=== PATIENT | male | born 1950 | race Hispanic/Latino ===

== ENCOUNTER 2017-08-20 00:54 | Emergency (ER) | payer BC, MEDICARE ==
[~2017-08-20] VITALS: Ht 165.1 cm; Wt 75.7 kg
[2017-08-20] MEDS ORDERED: ONDANSETRON HCL INJ 2 MG/ML VIAL IV STA (01:57)
[2017-08-20] MEDS ORDERED: HYDROCODONE/APAP 7.5MG-325MG 1 EA TAB PO STA (01:57)
[2017-08-20] MEDS ORDERED: PANTOPRAZOLE 40 MG 10ML VIAL IV STA (01:57)
[2017-08-20] MEDS ORDERED: OXYBUTYNIN CHLORIDE 5 MG TAB PO ONE (02:00)
[2017-08-20] MEDS ORDERED: CLONIDINE HCL 0.1 MG TAB PO ONE (02:15)
[2017-08-20] MEDS ORDERED: SODIUM CHLORIDE 0.9% 500ML 500 ML IV ONE (02:15)
[2017-08-20 02:19] LABS: BASOPHILS # (AUTO) 0.1 (0.0-0.1); BASOPHILS % 0.7 % (0.0-1.0); EOSINOPHILS # (AUTO) 0.2 (0.0-0.4); EOSINOPHILS % 1.6 % (0.0-6.0); HEMATOCRIT 43.7 % (38.2-49.6); HEMOGLOBIN 15.3 g/dL (14.0-18.0); LYMPHOCYTES # (AUTO) 1.7 (1.0-3.2); LYMPHOCYTES % 13.7 % (18.0-39.1); MEAN CORPUSCULAR HEMOGLOBIN 29.7 pg (28-32); MEAN CORPUSCULAR VOLUME 84.9 fL (81-99); MONOCYTES # (AUTO) 0.9 (0.2-0.8); MONOCYTES % 7.8 % (4.4-11.3); NEUTROPHILS # (AUTO) 9.1 (2.1-6.9); NEUTROPHILS % 75.7 % (38.7-80.0); PLATELET COUNT 239 x10e3/uL (140-360); RED BLOOD COUNT 5.15 x10e6/uL (4.3-5.7); RED CELL DISTRIBUTION WIDTH 13.9 % (11.7-14.4)
[2017-08-20 02:40] LABS: ALANINE AMINOTRANSFERASE 26 IU/L (0-55); ALBUMIN 4.2 g/dL (3.5-5.0); ALBUMIN/GLOBULIN RATIO 1.4 (0.8-2.0); ALKALINE PHOSPHATASE 209 IU/L (40-150); ANION GAP 15.6 mmol/L (8-16); BLOOD UREA NITROGEN 9 mg/dL (7-26); BUN/CREATININE RATIO 13 (6-25); CALCIUM 9.9 mg/dL (8.4-10.2); CARBON DIOXIDE 23 mmol/L (22-29); CHLORIDE 99 mmol/L (98-107); CREATININE, SERUM 0.72 mg/dL (0.72-1.25); EST GLOMERULAR FILTRATION RATE > 60 ML/MIN (60-); GLUCOSE 368 mg/dL (74-118); MAGNESIUM 1.5 MG/DL (1.3-2.1); POTASSIUM 3.6 mmol/L (3.5-5.1); SODIUM 134 mmol/L (136-145)
--- NOTE | 2017-08-20 03:23 | Diagnostic Imaging Report ---
ADDENDUM #1 EXAM: CT Abdomen and Pelvis WITHOUT contrast INDICATION: Suprapubic pain for 4 days. COMPARISON: None. TECHNIQUE: Abdomen and pelvis were scanned utilizing a multidetector helical scanner from the lung base to the pubic symphysis without administration of IV contrast. Absence of intravenous contrast decreases sensitivity for detection of focal lesions and vascular pathology. Coronal and sagittal reformations were obtained. Stone protocol is performed. IV CONTRAST: None. ORAL CONTRAST: None RADIATION DOSE: Total DLP: 600.63 mGy*cm Estimated effective dose: (DLP x 0.015 x size factor) mSv COMPLICATIONS: None FINDINGS: LINES and TUBES: None. LOWER THORAX: Findings in the lung bases are compatible with early stages of fibrosis HEPATOBILIARY: No focal hepatic lesions. No biliary ductal dilation. GALLBLADDER: No radio-opaque stones or sludge. No wall thickening. SPLEEN: No splenomegaly. PANCREAS: No focal masses or ductal dilatation. ADRENALS: No adrenal nodules KIDNEYS/URETERS: No hydronephrosis. No cystic or solid mass lesions. 7.5 mm stone in the inferior renal collecting system of the left kidney. GI TRACT: No abnormal distention, wall thickening, or evidence of bowel obstruction. Appendix is normal. PELVIC ORGANS/BLADDER: Despite the presence of a Monahan catheter in the urinary bladder is severely distended suggestive of catheter obstruction LYMPH NODES: No lymphadenopathy. VESSELS: There is severe atherosclerotic disease in the aorta and major arterial branches. PERITONEUM / RETROPERITONEUM: No free air or fluid. BONES: There is extensive severe spinal and pelvic deformity related to levorotoscoliosis and loss of the usual lumbar lordosis. SOFT TISSUES: Unremarkable. IMPRESSION: 1. Urinary bladder ballooning despite the presence of a Monahan catheter. Correlate for catheter malfunction. Decompression of the bladder is recommended 2. Left-sided nephrolithiasis. 3. 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 Salvador Vasquez M.D. on 08/20/2017 3:44 AM ORIGINAL REPORT EXAM: CT Abdomen and Pelvis WITHOUT contrast INDICATION: Suprapubic pain for 4 days. COMPARISON: None. TECHNIQUE: Abdomen and pelvis were scanned utilizing a multidetector helical scanner from the lung base to the pubic symphysis without administration of IV contrast. Absence of intravenous contrast decreases sensitivity for detection of focal lesions and vascular pathology. Coronal and sagittal reformations were obtained. Stone protocol is performed. IV CONTRAST: None. ORAL CONTRAST: None RADIATION DOSE: Total DLP: 600.63 mGy*cm Estimated effective dose: (DLP x 0.015 x size factor) mSv COMPLICATIONS: None FINDINGS: LINES and TUBES: None. LOWER THORAX: Findings in the lung bases are compatible with early stages of fibrosis HEPATOBILIARY: No focal hepatic lesions. No biliary ductal dilation. GALLBLADDER: No radio-opaque stones or sludge. No wall thickening. SPLEEN: No splenomegaly. PANCREAS: No focal masses or ductal dilatation. ADRENALS: No adrenal nodules KIDNEYS/URETERS: No hydronephrosis. No cystic or solid mass lesions. 7.5 mm stone in the inferior renal collecting system of the left kidney. GI TRACT: No abnormal distention, wall thickening, or evidence of bowel obstruction. Appendix is normal. PELVIC ORGANS/BLADDER: Despite the presence of a suprapubic catheter in the urinary bladder is severely distended suggestive of catheter obstruction LYMPH NODES: No lymphadenopathy. VESSELS: There is severe atherosclerotic disease in the aorta and major arterial branches. PERITONEUM / RETROPERITONEUM: No free air or fluid. BONES: There is extensive severe spinal and pelvic deformity related to levorotoscoliosis and loss of the usual lumbar lordosis. SOFT TISSUES: Unremarkable. IMPRESSION: 1. Urinary bladder ballooning despite the presence of a suprapubic catheter. Correlate for catheter malfunction. Decompression of the bladder is recommended 2. Left-sided nephrolithiasis. 3. 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 Salvador Vasquez M.D. on 08/20/2017 3:19 AM
[2017-08-20] MEDS: INSULIN LISPRO 100 UNIT/1 ML 3ML VIAL SQ STA (04:14)
[2017-08-20 04:30] LABS: CLARITY,URINE CLEAR (CLEAR); COLOR,URINE YELLOW (YELLOW)
[2017-08-20 04:31] LABS: BILIRUBIN,URINE NEGATIVE (NEGATIVE); KETONES,URINE NEGATIVE (NEGATIVE); LEUKOCYTE ESTERASE ,URINE NEGATIVE (NEGATIVE); NITRITE,URINE NEGATIVE (NEGATIVE); PROTEIN,URINE DIPSTICK TRACE (NEGATIVE); URINE UROBILINOGEN 0.2 mg/dL (0.2 - 1)
[2017-08-20 04:41] LABS: BACTERIA,URINE RARE /HPF; EPITHELIAL CELLS,URINE RARE /LPF; WBC,URINE (MAN) 0-5 /HPF (0-5)
[2017-08-20 04:42] LABS: YEAST,URINE FEW
[2017-08-20 06:07] VITALS: BP 127/67
== END 2017-08-20 06:27 | disposition home or self-care (01) ==
LOC: ER 00:54
DX: R10.30 Lower abdominal pain, unspecified (principal); R33.9 Retention of urine, unspecified; I10 Essential (primary) hypertension; E11.9 Type 2 diabetes mellitus without complications; R29.818 Other symptoms and signs involving the nervous system; N31.9 Neuromuscular dysfunction of bladder, unspecified; G14 Postpolio syndrome; Z86.73 Personal history of transient ischemic attack (TIA), and cerebral infarction without residual deficits
CPT/HCPCS: 36415; 51700; 51702; 74176; 80053; 81001; 82948; 83735; 85025; 87086; 99284; J2405; J7040

== ENCOUNTER → 2017-10-10 | Day surgery (SDC) | payer MEDICARE ==
[~2017-10-10] VITALS: Ht 165.1 cm; Wt 79.4 kg
[~2017-10-10] MED LIST: AMLODIPINE BESYL5 MG PO; ASPIR-LOW81 MG PO; ATORVASTATIN CA10 MG PO; FENTANYL CITRATE/PF 100MCG/2 ML INJ ONE; GABAPENTIN100 MG PO; HYDROCHLOROTH12.5 M1 PO; HYDROCODONE-IB1 EAC1 PO; LABETALOL HCL100 MG PO; LANTUS 3ML100 UNITS/ SC; LIDOCAINE HCL 2% LOCAL 20 ML VIAL ONE; LISINOPRIL10 MG PO; MIDAZOLAM HCL 2 MG/2 ML VIAL ONE; SODIUM CHLORIDE 0.9% 1000ML 1,000 ML ONE; SODIUM CHLORIDE 0.9% 500ML 0 ML ONE; SODIUM CHLORIDE 0.9% 500ML 500 ML ONE; SOMA250 MG PO; TAMSULOSIN HCL0.4 MG PO
--- OUTSIDE RECORDS SUMMARY | 2017-10-10 09:22 | XMS REPORT ---
Author Author [facility] Address Unknown Phone Unavailable Care Team Providers Care Operations Manager Station Name Role Phone SHORTY WHITAKER Unavailable Unavailable Problems This patient has no known problems. Allergies, Adverse Reactions, Alerts This patient has no known allergies or adverse reactions. Medications This patient has no known medications. Results Test Description Test Time Test Comments Text Results Atomic Results Result Comments CT ABDOMEN/PELVIS WO [place] [address] Patient Name: BIGG TRINIDAD MR #: [id number] : 1950 Age/Sex: 66/M Req # : [id number] Adm Physician: Ordered by: SHORTY WHITAKER MD Report #: [id number] Location: ER Room/Bed: Procedure: [id number] CT/CT ABDOMEN/PELVIS WO Exam Date: 08/20/17 Exam Time: 222 REPORT STATUS: Signed ADDENDUM #1 EXAM: CT Abdomen and Pelvis WITHOUT contrast INDICATION: Suprapubic pain for 4 days. COMPARISON: None. TECHNIQUE: Abdomen and pelvis were scanned utilizing a multidetector helical scanner from the lung base to the pubic symphysis without administration of IV contrast. Absence of intravenous contrast decreases sensitivity for detection of focal lesions and vascular pathology. Coronal and sagittal reformations were obtained. Stone protocol is performed. IV CONTRAST: None. ORAL CONTRAST: None RADIATION DOSE: Total DLP: 600.63 mGy*cm Estimated effective dose: (DLP x 0.015 x size factor) mSv COMPLICATIONS: None FINDINGS: LINES and TUBES: None. LOWER THORAX: Findings in the lung bases are compatible with early stages of fibrosis HEPATOBILIARY : No focal hepatic lesions. No biliary ductal dilation. GALLBLADDER: No radio-opaque stones or sludge. No wall thickening. SPLEEN: No splenomegaly. PANCREAS: No focal masses or ductal dilatation. ADRENALS: No adrenal nodules KIDNEYS/URETERS: No hydronephrosis. No cystic or solid mass lesions. 7.5 mm stone in the inferior renal collecting system of the left kidney. GI TRACT: No abnormal distention, wall thickening, or evidence of bowel obstruction. Appendix is normal. PELVIC ORGANS/BLADDER: Despite the presence of a Monahan catheter in the urinary bladder is severely distended suggestive of catheter obstruction LYMPH NODES: No lymphadenopathy. VESSELS: There is severe atherosclerotic disease in the aorta and major arterial branches. PERITONEUM / RETROPERITONEUM: No free air or fluid. BONES: There is extensive severe spinal and pelvic deformity related to levorotoscoliosis and loss of the usual lumbar lordosis. SOFT TISSUES: Unremarkable. IMPRESSION: 1. Urinary bladder ballooning despite the presence of a Monahan catheter. Correlate for catheter malfunction. Decompression of the bladder is recommended 2. Left-sided nephrolithiasis. 3. 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 Salvador Vasquez M.D. on 2017 3:44 AM ORIGINAL REPORT EXAM: CT Abdomen and Pelvis WITHOUT contrast INDICATION: Suprapubic pain for 4 days. COMPARISON : None. TECHNIQUE: Abdomen and pelvis were scanned utilizing a multidetector helical scanner from the lung base to the pubic symphysis without administration of IV contrast. Absence of intravenous contrast decreases sensitivity for detection of focal lesions and vascular pathology. Coronal and sagittal reformations were obtained. Stone protocol is performed. IV CONTRAST: None. ORAL CONTRAST: None RADIATION DOSE: Total DLP: 600.63 mGy*cm Estimated effective dose : (DLP x 0.015 x size factor) mSv COMPLICATIONS: None FINDINGS: LINES and TUBES: None. LOWER THORAX: Findings in the lung bases are compatible with early stages of fibrosis HEPATOBILIARY: No focal hepatic lesions. No biliary ductal dilation. GALLBLADDER: No radio-opaque stones or sludge. No wall thickening. SPLEEN: No splenomegaly. PANCREAS: No focal masses or ductal dilatation. ADRENALS: No adrenal nodules KIDNEYS/URETERS: No hydronephrosis. No cystic or solid mass lesions. 7.5 mm stone in the inferior renal collecting system of the left kidney. GI TRACT: No abnormal distention, wall thickening, or evidence of bowel obstruction. Appendix is normal. PELVIC ORGANS/BLADDER: Despite the presence of a suprapubic catheter in the urinary bladder is severely distended suggestive of catheter obstruction LYMPH NODES: No lymphadenopathy. VESSELS: There is severe atherosclerotic disease in the aorta and major arterial branches. PERITONEUM / RETROPERITONEUM: No free air or fluid. BONES: There is extensive severe spinal and pelvic deformity related to levorotoscoliosis and loss of the usual lumbar lordosis. SOFT TISSUES: Unremarkable. IMPRESSION: 1. Urinary bladder ballooning despite the presence of a suprapubic catheter. Correlate for catheter malfunction. Decompression of the bladder is recommended 2. Left-sided nephrolithiasis. 3. 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 Salvador Vasquez M.D. on 08/20/2017 3:19 AM Dictated By: SALVADOR AWAD MD [id number] Transcribed By: HUE on 08/20/17 8036 COPY TO: SHORTY WHITAKER MD
--- OUTSIDE RECORDS SUMMARY | 2017-10-10 09:22 | XMS REPORT | Continuity of Care Document ---
Author Author [facility] Organization [facility] Address [address] [place] [address] Phone Unavailable Care Team Providers Care Slasher Tender Helper Name Role Phone AMBER PALUMBO PCP Insurance Providers Guarantor Sergio Tam Address [address] [place] [address] Email NONE Payer [employer] Medicare Complete Policy Number [id number] Subscriber's Name Sergio Tam Relationship 18 Self / Same As Patient Group Number [id number] Effective Date 17 Advance Directives Directive Response Recorded Date/Time Does the patient have an advance directive? No 03/08/10 11:26am If yes, is advance directive on file with [facility]? No 06/11/08 11:47am If not on file with [facility] will patient provide a copy? No 08/20/17 6:13am Do you have a Directive to Physician? No 08/20/17 6:13am Do you have a Medical Power of Perfumer? No 08/20/17 6:13am Do you have an out of hospital Do Not Resuscitate Order? No 08/20/17 6:13am Do you have any special needs we should be aware of? No 08/20/17 6:13am Do you have a support person here with you today? No 08/20/17 6:13am Did patient receive Notice of Privacy Practices? Yes 08/20/17 6:13am Did patient receive patient rights and responsibilities? Yes 08/20/17 6:13am Problems No problem information available. Medications No medication information available. Social History Smoking Status Start Date Stop Date Never Smoker Hospital Discharge Instructions No hospital discharge instruction information available. Plan of Care Discharge Date 08/20/17 6:27am Disposition HOME, SELF-CARE Condition at Discharge Stable Instructions/Education Provided Urinary Incontinence Urinary Retention Prescriptions See Medication Section Referrals GAGANDEEP POWERS MD Address: [address] [place] [address] VIBHA SIM MD Address: [address] [place] [address] Additional Instructions/Education REST; FOLLOW UP WITH YOUR UROLOGIST; TAKE MEDICATIONS PRESCRIBED; Functional Status No functional status information available. Allergies, Adverse Reactions, Alerts Allergen Type Severity Reaction Status Last Updated Morphine Allergy Mild Active 08/20/17 Immunizations No immunization information available. Vital Signs Acute Vital Signs Vital Response Date/Time Pulse Pulse Rate (adult) 84 bpm (60 - 90) 08/20/2017 6:07am Pulse Pulse Rate (adult) 84 bpm (60 - 90) 08/20/2017 6:07am Respiratory Rate 16 bpm (12 - 24) 08/20/2017 6:07am Blood Pressure 127/67 mm Hg 08/20/2017 6:07am Blood Pressure 127/67 mm Hg 08/20/2017 6:07am Height 5 ft 5 in 08/20/2017 1:49am Weight 167 lb 08/20/2017 1:49am Body Mass Index 27.8 kg/m^2 08/20/2017 1:49am Results Laboratory Results Test Name Result Units Flags Reference Collection Date/Time Result Date/ Time Comments White Blood Count 12.01 x10e3/uL H 4.8-10.8 08/20/2017 2:05am 2017 2:26am Red Blood Count 5.15 x10e6/uL 4.3-5.7 08/20/2017 2:05am 08/20/2017 2: 26am Hemoglobin 15.3 g/dL 14.0-18.0 08/20/2017 2:05am 08/20/2017 2:26am Hematocrit 43.7 % 38.2-49.6 08/20/2017 2:05am 08/20/2017 2:26am Mean Corpuscular Volume 84.9 fL 81-99 08/20/2017 2:05am 08/20/2017 2: 26am Mean Corpuscular Hemoglobin 29.7 pg 28-32 08/20/2017 2:05am 08/20/2017 2:26am Mean Corpuscular Hemoglobin Concent 35.0 g/dL 31-35 08/20/2017 2:05am 08/20/2017 2:26am Red Cell Distribution Width 13.9 % 11.7-14.4 08/20/2017 2:05am 2017 2:26am Platelet Count 239 x10e3/uL 140-360 08/20/2017 2:05am 08/20/2017 2: 26am Neutrophils (%) (Auto) 75.7 % 38.7-80.0 08/20/2017 2:05am 08/20/2017 2: 26am Lymphocytes (%) (Auto) 13.7 % L 18.0-39.1 08/20/2017 2:05am 08/20/2017 2 :26am Monocytes (%) (Auto) 7.8 % 4.4-11.3 08/20/2017 2:05am 08/20/2017 2: 26am Eosinophils (%) (Auto) 1.6 % 0.0-6.0 08/20/2017 2:05am 08/20/2017 2: 26am Basophils (%) (Auto) 0.7 % 0.0-1.0 08/20/2017 2:05am 08/20/2017 2:26am IM GRANULOCYTES % 0.5 % 0.0-1.0 08/20/2017 2:05am 08/20/2017 2:26am Neutrophils # (Auto) 9.1 H 2.1-6.9 08/20/2017 2:05am 08/20/2017 2: 26am Lymphocytes # (Auto) 1.7 1.0-3.2 08/20/2017 2:05am 08/20/2017 2:26am Monocytes # (Auto) 0.9 H 0.2-0.8 08/20/2017 2:05am 08/20/2017 2:26am Eosinophils # (Auto) 0.2 0.0-0.4 08/20/2017 2:05am 08/20/2017 2:26am Basophils # (Auto) 0.1 0.0-0.1 08/20/2017 2:05am 08/20/2017 2:26am Absolute Immature Granulocyte (auto 0.06 x10e3/uL 0-0.1 08/20/2017 2: 05am 08/20/2017 2:26am Urine Color YELLOW YELLOW 08/20/2017 3:50am 08/20/2017 4:31am Urine Clarity CLEAR CLEAR 08/20/2017 3:50am 08/20/2017 4:31am Urine Specific [place] 1.005 L 1.010-1.025 08/20/2017 3:50am 2017 4:31am Urine pH 7 5 - 7 08/20/2017 3:50am 08/20/2017 4:31am Urine Leukocyte Esterase NEGATIVE NEGATIVE 08/20/2017 3:50am 2017 4:31am Urine Nitrite NEGATIVE NEGATIVE 08/20/2017 3:50am 08/20/2017 4:31am Urine Protein TRACE H NEGATIVE 08/20/2017 3:50am 08/20/2017 4:31am Urine Glucose (UA) 3+ H NEGATIVE 08/20/2017 3:50am 08/20/2017 4:31am Urine Ketones NEGATIVE NEGATIVE 08/20/2017 3:50am 08/20/2017 4:31am Urine Urobilinogen 0.2 mg/dL 0.2 - 1 08/20/2017 3:50am 08/20/2017 4: 31am Urine Bilirubin NEGATIVE NEGATIVE 08/20/2017 3:50am 08/20/2017 4: 31am Urine Blood TRACE H NEGATIVE 08/20/2017 3:50am 08/20/2017 4:31am Urine WBC 0-5 /HPF 0-5 08/20/2017 3:50am 08/20/2017 4:42am Urine RBC 11-20 /HPF H 0-5 08/20/2017 3:50am 08/20/2017 4:42am Urine Bacteria RARE /HPF NONE 08/20/2017 3:50am 08/20/2017 4:42am Urine Epithelial Cells RARE /LPF NONE 08/20/2017 3:50am 08/20/2017 4: 42am Urine Yeast FEW H NONE 08/20/2017 3:50am 08/20/2017 4:42am Sodium Level 134 mmol/L L 136-145 08/20/2017 2:05am 08/20/2017 2:43am Potassium Level 3.6 mmol/L 3.5-5.1 08/20/2017 2:05am 08/20/2017 2:43am Chloride Level 99 mmol/L 98-107 08/20/2017 2:05am 08/20/2017 2:43am Carbon Dioxide Level 23 mmol/L 22-29 08/20/2017 2:05am 08/20/2017 2: 43am Anion Gap 15.6 mmol/L 8-16 08/20/2017 2:05am 08/20/2017 2:43am Blood Urea Nitrogen 9 mg/dL 7-08/20/2017 2:05am 08/20/2017 2:43am Creatinine 0.72 mg/dL 0.72-1.25 08/20/2017 2:05am 08/20/2017 2:43am BUN/Creatinine Ratio 13 6-25 08/20/2017 2:05am 08/20/2017 2:43am Estimat Glomerular Filtration Rate > 60 ML/MIN 60- 08/20/2017 2:05am 2:43am Ranges were taken from the National Kidney Disease Education Program and the National Kid[employer] Foundation literature. Reference ranges: 60 or greater: Normal 16-59 (for 3 consecutive months): Chronic kidney disease 15 or less: Kidney failure Glucose Level 368 mg/dL H 74-118 08/20/2017 2:05am 08/20/2017 2:43am Calcium Level 9.9 mg/dL 8.4-10.2 08/20/2017 2:05am 08/20/2017 2:43am Bedside Glucose 343 mg/dL H 70-120 08/20/2017 4:11am 08/20/2017 4:20am Meter ID: [id number] Magnesium Level 1.5 MG/DL 1.3-2.1 08/20/2017 2:05am 08/20/2017 2:43am Total Bilirubin 1.1 mg/dL 0.2-1.2 08/20/2017 2:05am 08/20/2017 2:43am Aspartate Amino Transf (AST/SGOT) 70 IU/L H 5-34 08/20/2017 2:05am 08/20 2:43am Alanine Aminotransferase (ALT/SGPT) 26 IU/L 0-55 08/20/2017 2:05am 07/2017 2:43am Total Protein 7.3 g/dL 6.5-8.1 08/20/2017 2:05am 08/20/2017 2:43am Albumin 4.2 g/dL 3.5-5.0 08/20/2017 2:05am 08/20/2017 2:43am Globulin 3.1 g/dL 2.3-3.5 08/20/2017 2:05am 08/20/2017 2:43am Albumin/Globulin Ratio 1.4 0.8-2.0 08/20/2017 2:05am 08/20/2017 2: 43am Alkaline Phosphatase 209 IU/L H 40-150 08/20/2017 2:05am 08/20/2017 2: 43am Procedures Procedure Status Date Provider(s) CT of abdomen and pelvis without contrast Active 08/20/17 SHORTY WHITAKER MD Encounters Encounter Location Arrival/Admit Date Discharge/Depart Date Attending Provider Departed Emergency Room [facility] 08/20/17 12:54am 08/20 6:27am SHORTY WHITAKER MD
[2017-10-10 10:50] VITALS: BP 123/67
[2017-10-10 11:06] LABS: INR 1.34
[2017-10-10 11:07] LABS: PARTIAL THROMBOPLASTIN TIME 31.3 seconds (23.8-35.5); PROTHROMBIN TIME 15.6 seconds (11.9-14.5)
[2017-10-10 13:31] VITALS: BP 160/72
[2017-10-10 13:40] VITALS: BP 148/82
[2017-10-10 14:00] VITALS: BP 137/61
[2017-10-10 14:10] VITALS: BP 146/74
[2017-10-10 14:25] VITALS: BP 121/61
--- NOTE | 2017-10-17 15:23 | Diagnostic Imaging Report ---
Procedure: Suprapubic catheter placement Indication: Patient with a history of polio and neurogenic bladder. Medications: Versed 2 mg intravenous, Fentanyl 50 mcg intravenous. The patient's vital signs, including pulse oximetry, were continuously monitored by the interventional radiology nurse. Fluoroscopy time: 3.6 minutes. Dose area product: 1627.8 cGycm2 Contrast used: 30 cc of Isovue-300 Estimated blood loss: Minimal. Complications: No immediate. Procedure in detail: Informed consent for the procedure was obtained from the patient after discussion of risks and benefits. The lower abdomen was prepped and draped in the usual fashion. 1% lidocaine was administered into the skin and subcutaneous tissues of the lower abdomen for local anesthesia. Contrast was then instilled into the indwelling Monahan catheter. This was followed by normal saline. A 21-gauge needle was then placed into the bladder followed by a 0.018 inch wire was advanced under fluoroscopic guidance. The needle was then removed and access was secured with an AccuStick sheath. A 0.035 " Amplatz superstiff wire was then coiled into the bladder. Tract was dilated with a 10 and 12 Dominican Pierre dilator. An angioplasty balloon (8 mm diameter x 4 cm long) was then used to dilate the tract. A 20 [place] Pierre dilator was then required to complete dilatation so that a 16 Dominican balloon retention Rutner suprapubic catheter could be placed over the wire. The retention balloon was inflated with 4 cc of saline. The catheter was then secured to the skin with 3-0 Ethilon. The Monahan catheter was then removed. Impression: Successful fluoroscopic placement of a suprapubic urinary bladder catheter. Signed by: Dr. James Aguilera DO on 10/11/2017 4:52 PM
== END | disposition home or self-care (01) ==
LOC: CATH LAB 09:18 → EDSTATUS 12:00
PROVIDERS: ATTEND Urology
DX: N39.0 Urinary tract infection, site not specified (principal); B91 Sequelae of poliomyelitis; Z79.82 Long term (current) use of aspirin; Z79.4 Long term (current) use of insulin
CPT/HCPCS: 36415; 51102; 77001; 85610; 85730; J2250; J7030; J7040; 77002; J2001